=== PATIENT | male | born 1950 ===

== ENCOUNTER 2016-06-19 07:13 | Emergency (ER) | payer MEDICARE, OTHER ==
[~2016-06-19] VITALS: Ht 193 cm; Wt 96.4 kg
[2016-06-19 07:16] VITALS: BP 137/82; PULSE 102; RESP 16; O2SAT 99
--- NOTE | 2016-06-19 07:17 | ED.REPORT ---
HPI-Headache Date of Service Jun 19, 2016 ED Provider: MD Blair The pt is a healthy 65 y/o male presenting to the ED complaining of headaches onset 3 days ago. He was working on a job site and began feeling like "his battery was dying", causing him to go home where he developed a fever, headaches , neck pain, back pain, dizziness described as the room spinning, photophobia and diffuse myalgias w/ a severity of 8/10 currently. He also reports diaphoresis, chills, nausea, and lack of appetite. Denies SOB, cough, vomiting, and dysuria. He describes the headaches as sharp, on the front and side of his head, and feeling pressure. He took an ibuprofen at 1600 yesterday but has not taken any medications this morning. Nursing Notes Stated Complaint: HEADACHE Chief Complaint: General Complaint Nursing Notes Reviewed: Yes ([employer] [place] not reconciled) Allergies: Coded Allergies: No Known Allergies (Unverified , 06/19/16) Scheduled PRN Prochlorperazine Maleate (Prochlorperazine) 10 Mg Tablet 10 MG PO Q6H PRN PRN Headache (or Nausea) General Time Seen by MD: 07:16 Chief Complaint Headache Hx Obtained From: Patient Arrived By: Walk-in Sudden in Onset?: Yes Onset Occurred: 3 days ago Symptom Duration: Since onset Recent Healthcare: No recent doctor visit, No recent hospitalization Similar Sx Previous: No Past Medical History Past Medical History Denies Past Surgical History Denies Smoking History Never Smoker Social History Alcohol Use: "Social" Drug Use: Denies drug use Ambulatory Status Independent Review of Systems Basic Review of Systems Respiratory: No shortness of breath Constitutional: Reports: Chills, Fever GI: Reports: Nausea, Denies: Vomiting Musculoskeletal: Reports: Back pain, Myalgia, Neck pain Skin: Reports Diaphoresis Neurologic: Reports: Dizziness, Headache Complete sys rev & neg: except as marked. Respiratory: Denies: Non-productive cough Male: Denies Dysuria Physical Exam Initial Vital Signs Vital Signs (First) Date Time Temp Pulse Resp B/P Pulse Ox O2 Delivery O2 Flow Rate FiO2 06/19/16 07:16 37.0 102 16 137/82 99 Room Air Initial VS: Reviewed General/Constitutional: Awake, Alert Head / Eyes: Atraumatic, Normocephalic Neck: Atraumatic, Supple, No meningismus, Full range of motion Neurologic: Oriented X3, Speech NL ENT: Atraumatic, Airway patent Respiratory / Chest: Atraumatic, Breath sounds NL, Breath sounds = bilat, No respiratory distress, No rales, No rhonchi, No wheezing Cardiovascular: Heart rate NL, Regular rhythm, Heart sounds NL Abdomen: Atraumatic, Soft Skin: Atraumatic, Color NL, No rash Psychiatric: Affect NL, Mood NL Lower Extremity / Pelvis / MS: Atraumatic, Inspection NL Interpretation & Diagnostics Lab Results Interpretation Result Diagram: 06/19/16 0800 06/19/16 0800 Test 06/19/16 08:00 06/19/16 08:30 06/19/16 11:29 White Blood Count 6.3th/mm3 (3.8-10.1) Red Blood Count 4.93mil/mm3 (4.40-5.80) Hemoglobin 15.2g/dL (13.8-17.2) Hematocrit 43.2% (41.0-50.0) Mean Corpuscular Volume 87.6fL (81-100) Mean Corpuscular Hemoglobin 30.8pg (27.0-35.0) Mean Corpuscular Hemoglobin Concent 35.2% (32.0-37.0) Red Cell Distribution Width 12.5% (12.3-15.4) Platelet Count 143bil/L (150-400) Neutrophils (%) (Auto) 77.7% (40-74) Lymphocytes (%) (Auto) 12.9% (14-46) Monocytes (%) (Auto) 8.6% (4-12) Eosinophils (%) (Auto) 0.5% (0-5) Basophils (%) (Auto) 0.3% (0-3) Prothrombin Time 10.2sec (8.1-12.5) Prothromb Time International Ratio 0.95ratio Activated Partial Thromboplast Time 25.9sec (22.8-33.0) Sodium Level 133mEq/L (134-144) Potassium Level 3.8mEq/L (3.5-5.2) Chloride Level 95mEq/L (97-108) Carbon Dioxide Level 24mmol/L (18-29) Blood Urea Nitrogen 13mg/dL (8-27) Creatinine 0.90mg/dL (0.76-1.27) Estimat Glomerular Filtration Rate 90mL/min (>59) Glucose Level 196mg/dL (60-99) Lactic Acid Level 1.2mmol/L (0.4-2.0) Calcium Level 9.4mg/dL (8.5-10.1) Total Bilirubin 0.9mg/dL (0.0-1.2) Aspartate Amino Transf (AST/SGOT) 16U/L (0-50) Alanine Aminotransferase (ALT/SGPT) 15U/L (0-44) Alkaline Phosphatase 59U/L (25-160) Total Protein 7.2g/dL (6.4-8.4) Albumin 4.4g/dL (3.4-5.0) CSF Appearance Clear (CLEAR) CSF Color Colorless (COLORLESS) CSF WBC 1/mm3 (0-5) CSF RBC 0/mm3 CSF Mononuclear WBCs % CSF Polynuclear WBCs % CSF Other Cells CSF Glucose 73mg/dL (45-90) CSF Total Protein 41mg/dL (15-45) Urine Color Dark yellow (YELLOW) Urine Appearance Clear (CLEAR,HAZY) Urine pH 6.0 (5.0-8.0) Urine Specific [place] 1.023 (1.003-1.035) Urine Protein Negativemg/dL (NEG,TRACE) Urine Glucose (UA) Negativemg/dL (NEGATIVE) Urine Ketones Negativemg/dL (NEGATIVE) Urine Occult Blood Negative (NEGATIVE) Urine Nitrite Negative (NEGATIVE) Urine Bilirubin Negative (NEGATIVE) Urine Urobilinogen Normalmg/dL (NORMAL) Urine Leukocyte Esterase Negative (NEGATIVE) Urine RBC 0-2/hpf (0-2) Urine WBC 0-5/hpf (0-5) Urine Epithelial Cells Few/hpf (NONE-MOD) Urine Crystals None seen (NONE SEEN) Urine Bacteria None/hpf (NONE-FEW) Urine Hyaline Casts Occasional/lpf (NONE) Urine Granular Casts None seen (NONE SEEN) Urine Waxy Casts None seen (NONE SEEN) Urine Red Blood Cell Casts None seen (NONE SEEN) Urine White Blood Cell Casts None seen (NONE SEEN) Urine Mucus Present (None Seen) Urine Trichomonas None seen (NONE SEEN) Urine Yeast None (NONE SEEN) Urinalysis Comment None Urine Culture Reflexed Not indicated CT Head Interpretation IMPRESSION: 1. No acute intracranial process. 2. Mild atrophy and chronic microvascular ischemic changes. Dictated by: Genna Vicente M.D. on 06/19/2016 at 7:51 Approved by: Genna Vicente M.D. on 06/19/2016 at 7:54 Study: Head CT no contrast Interpretation / Wet Read by: Interpret - Radiologist Procedures Lumbar Puncture Text / Dict Note: Clear CSF on first pass Time: 08:16 Procedure Performed by: ED physician Consent / Setup / Site Prep: Informed consent provided, Consent from patient , Hand hygiene observed, Stand sterile technique, Sterile drapes applied Skin Preparation Agent: Betadine Local Anesthesia: Bupivacaine 0.5% LP Needle Gauge: 22 gauge, 3.5" needle Inserted Needle at: L4 L5 Post-Procedure / Complications: Antibiotic oint applied, Dressing applied, No complications, Tolerated procedure well, Patient stable Re-Eval/Medical Decision Med Decision/Clinical Course This is a 65-year-old male presents with a several day history of body aches, fever, headache and neck stiffness. He has not had a rash. He has not had no travel history are no known ill contacts. He has had no cough or respiratory symptoms, he has some urinary urgency the other day that resolved, he has no abdominal symptoms. He has had no recent antibiotic exposure, no known tick or insect exposures. On exam he is afebrile, nontoxic but appears mildly fatigued. He does not have clinically evident meningismus on physical exam, but he describes symptoms of neck stiffness. Lungs are clear, heart tones are normal. CT the head was negative. Informed consent was obtained and a lumbar puncture performed, CSF was negative for findings of meningitis. Laboratory work was also normal, blood cultures are pending. Urinalysis is negative. All the patient feels much improved. At this point meningitis and/or Sears spectral infection has been excluded. Viral syndrome remains the most likely cause, and patient is being discharged with supportive care. He is much improved at time of discharge.Routine precautions reviewed. Source of Hx: Old records Re-Evaluation/Progress #1: Time of Eval: 08:16 Re-Evaluation/Progress Note: Performed LP procedure Re-Evaluation/Progress #2: Time of Eval: 10:55 Re-Evaluation/Progress Note: Pt rechecked. Discussed with patient lab results of no signs of meningitis. Informed pt of plan for treatment. Pt understands and agrees with plan for treatment. F/U instructions and RTER warnings given. All questions addressed. Differential Diagnosis: Positive: Headache, Negative: Carbon monoxide toxicity, Carotid artery dissection, Cerebellar ischemia, Cerebrovascular accident, Closed head injury, Dental infection, Encephalitis, Headache, hypertensive, Headache, migraine, Headache, muscular contra, Headache, post LP, Headache, post-traumatic, Headache, tension, Hemorrhage, intracerebral, Hemorrhage, subarachnoid, Hemorrhage, subdural, Intracranial abscess, Meningitis, Temporal arteritis Counseled Regarding: Diagnosis, Lab results, Need for follow-up, When/why to return to ED Discharge & Departure Impression: Primary Impression: Headache Headache type: unspecified Headache chronicity pattern: unspecified pattern Intractability: not intractable Qualified Code: R51 - Headache Additional Impression: Fever Fever type: unspecified Qualified Code: R50.9 - Fever, unspecified Discharge Condition All VS Reviewed: Yes Condition: Stable Scribe Attestation Portions of this note were transcribed by Magdy Ayala and Guerline Dozier. I, Dr. Pinto personally performed the history, physical exam and medical decision- making; I reviewed and confirmed the accuracy of the information in the transcribed note. Signed by: Pavan Lock, 06/19/16 and 0745. Joseph Pinto MD Jun 19, 2016 07:17 Magdy Ayala Jun 19, 2016 07:37 GUERLINE DOZIER Jun 19, 2016 07:52
[2016-06-19] MEDS ORDERED: HYDROmorphone 0.5 mg/0.5 mL iSecure Syringe IVPUSH ONE (07:35)
[2016-06-19] MEDS ORDERED: Ketorolac 15 mg/mL Inj IVPUSH ONE (07:35)
[2016-06-19] MEDS ORDERED: Ondansetron 2 mg/mL 2 mL Inj IVPUSH ONE (07:35)
[2016-06-19] MEDS ORDERED: 0.9% Sodium Chloride 1,000 ML IV ONE ×2 (07:35→08:40)
[2016-06-19 07:49] VITALS: BP 142/74; PULSE 95; RESP 11; O2SAT 98
[2016-06-19] MEDS ORDERED: Bupivacaine 0.5% 50 mL Inj INFILTRATE ONE (07:50)
--- NOTE | 2016-06-19 07:55 | DRSVH ---
PROCEDURE: CT BRAIN WITHOUT CONTRAST ([id number]) INDICATIONS: daugherty TECHNIQUE: Noncontrast 4.5 mm thick angled axial sections acquired from the foramen magnum to the vertex, with c oronal reformats. COMPARISON: None. FINDINGS: Image quality: Excellent. CSF spaces: Basal cisterns are patent. No extra-axial fluid collections. The ventricles are symmet davina in size and shape. Brain: No intracranial bleeds or masses. There is cerebral volume loss for age, with resultant vent ricular and sulcal prominence. There are periventricular and deep white matter chronic small vessel ischemic changes. There is intracranial internal carotid artery atherosclerosis. Skull and face: Calvarium and visualized facial bones appear intact, without suspicious lesions. Sinuses: Visualized sinuses demonstrate minimal right maxillary sinus mucosal thickening. IMPRESSION: 1. No acute intracranial process. 2. Mild atrophy and chronic microvascular ischemic changes. Dictated by: Genna Vicente M.D. on 06/19/2016 at 7:51 Approved by: Genna Vicente M.D. on 06/19/2016 at 7:54
[2016-06-19 08:11] LABS: BASOPHILS % (AUTO) 0.3 % (0-3); EOSINOPHILS % (AUTO) 0.5 % (0-5); MONOCYTES % (AUTO) 8.6 % (4-12); Mean Corpuscular Hemoglobin 30.8 pg (27.0-35.0); Mean Corpuscular Volume 87.6 fL (81-100); NEUTROPHILS % (AUTO) 77.7 % (40-74); Platelet Count 143 bil/L (150-400)
[2016-06-19] MEDS ORDERED: Bupivacaine-MPF 0.5% 30 mL Inj ONE (08:12)
[2016-06-19 08:26] LABS: INR 0.95 ratio
[2016-06-19] MEDS ORDERED: HYDROmorphone 0.5 mg/0.5 mL iSecure Syringe IVPUSH PRN (08:40)
[2016-06-19 09:30] VITALS: BP 103/61; PULSE 73; RESP 18; O2SAT 98
[2016-06-19 09:38] LABS: APPEARANCE,CSF CLEAR (CLEAR); COLOR,CSF COLORLESS (COLORLESS); WHITE BLOOD CELL,CSF 0 /mm3 (0-5)
[2016-06-19 09:39] LABS: APPEARANCE,CSF CLEAR (CLEAR); COLOR,CSF COLORLESS (COLORLESS); WHITE BLOOD CELL,CSF 1 /mm3 (0-5)
[2016-06-19 11:45] VITALS: BP 113/64; PULSE 74; RESP 10; O2SAT 98
[2016-06-19 12:15] LABS: APPEARANCE,URINE CLEAR (CLEAR,HAZY); COLOR,URINE DARK YELLOW (YELLOW); OCCULT BLOOD,URINE NEGATIVE (NEGATIVE); UROBILINOGEN,URINE NORMAL (NORMAL)
[2016-06-19] MEDS ORDERED: PROC10TA PO (12:21)
[2016-06-19 13:17] VITALS: BP 107/58; PULSE 71; RESP 14; O2SAT 99
== END 2016-06-19 13:19 ==
LOC: SED 07:13
DX: R51 Headache (principal); R50.9 Fever, unspecified
CPT/HCPCS: 36415; 62270; 70450; 80053; 81000; 82945; 83605; 84155; 85025; 85610; 85730; 87040; 87070; 87205; 87496; 87498; 87529; 87532; 87653; 87798; 89051; 96361; 96374; 96375; 99285; J1170; J1885; J2405; J7030